=== PATIENT | female | born 1990 | race Caucasian/White ===

== ENCOUNTER 2018-06-14 13:20 | Emergency (ER) | payer OTHER, MEDICAID, SELFPAY ==
[2018-06-14 13:56] VITALS: BP 121/68; PULSE 80; RESP 18; TEMP 36.7; O2SAT 100
--- NOTE | 2018-06-14 14:03 | ED.HA ---
HPI - Headache General Chief Complaint: Headache Stated Complaint: bad headaches for a month Time Seen by Provider: 06/14/18 13:31 Source: patient and family Mode of arrival: ambulatory Limitations: no limitations History of Present Illness HPI Narrative: 28-year-old female presents to the emergency department today with a chief complaint headaches for the past month. She denies any focal neurologic findings such as blurred vision, trouble with speech or numbness and tingling of extremities. She denies any [id number] therapies such as Tylenol or Motrin because her doctors told her not to mix any [id number] medications with her current prescriptions. About 1 month ago she was started on a new antipsychotic and has been taking lithium since February. At this point she has had no blood tests or levels checked. She denies any fever or chills nor neck pain MD Complaint: headache Onset (ago): day(s) Onset description: gradual Location: diffuse Severity: moderate Quality: aching Exacerbating factors: none Associated symptoms: none Related Data Home Medications Medication Instructions Recorded Confirmed buspirone 2 tab PO QPM 06/14/18 06/14/18 escitalopram oxalate 20 mg PO QPM 06/14/18 06/14/18 hydroxyzine pamoate 25 mg PO TID PRN 06/14/18 06/14/18 iloperidone [Fanapt] 2 mg PO QPM 06/14/18 06/14/18 lithium carbonate 1 cap PO BID 06/14/18 06/14/18 trazodone 50 - 100 mg PO BEDTIME PRN 06/14/18 06/14/18 Review of Systems Review of Systems All systems reviewed & are unremarkable except as noted in HPI and below Constitutional Denies chills, Denies fever(s), Reports headache(s), Denies lethargy and Denies weakness Eyes Denies change in vision, Denies eye discharge, Denies irritation and Denies loss of vision ENT Ears, Nose, Mouth, and Throat: Denies change in voice, Reports headache(s), Denies neck pain and Denies sore throat Cardiovascular Denies chest pain, Denies irregular heart rhythm, Denies lightheadedness, Denies palpitations, Denies dyspnea, Denies dyspnea on exertion and Denies orthopnea Respiratory Denies cough, Denies dyspnea, Denies dyspnea on exertion and Denies wheezing Gastrointestinal Gastrointestinal: Denies abdominal pain, Denies change in bowel habits, Denies diarrhea, Denies nausea and Denies vomiting Genitourinary Denies hematuria, Denies flank pain, Denies urinary incontinence and Denies urinary urgency Musculoskeletal Denies neck pain Integumentary/Breasts Denies pruritus, Denies erythema, Denies rash and Denies wounds Neurologic Denies confusion, Reports headache(s), Denies loss of vision and Denies weakness Psychiatric Denies anxiety, Denies confusion, Denies depression, Denies homicidal ideation and Denies suicidal ideation Endocrine Denies palpitations Hematologic/Lymphatic Denies easy bruising Allergic/Immunologic Denies wheezing Exam Initial Vital Signs Initial Vital Signs: Vital Signs Temperature 98.1 F 06/14/18 13:56 Pulse Rate 80 06/14/18 13:56 Respiratory Rate 18 06/14/18 13:56 Blood Pressure 121/68 H 06/14/18 13:56 Pulse Oximetry 100 06/14/18 13:56 Const General: cooperative and well developed Nutritional Appearance: well nourished Orientation: alert, awake, oriented x3 and not confused [facility] Head: normocephalic and atraumatic Ears: external ears normal and TM's normal bilaterally Nose: external nose normal and No nasal discharge Face and sinus: sinuses nontender, face symmetric, no sinus tenderness and No dry mucous membranes Mouth: oral mucosae normal and moist mucous membranes Teeth and gingiva: dentition normal Throat: tonsils normal and uvula midline Eyes General: appearance normal, both eyes and all related structures Eyelids: eyelids normal Conjunctivae: conjunctivae normal Sclera: sclerae normal Pupils: PERRL EOM: EOM intact bilaterally Neck Neck: normal visual inspection, trachea midline, No lymphadenopathy, No midline deformity and No JVD Lymphatic: No lymphedema Chest Chest: normal inspection of the chest Resp Effort & Inspection: normal respiratory effort, able to speak in complete sentences, no respiratory distress and no use of accessory muscles Auscultation: clear to auscultation bilaterally, no rales, no rhonchi and no wheezes Cardio Rate: regular rate Rhythm: regular rhythm Heart Sounds: no click, no gallops, no murmurs and no rubs Pulses: normal peripheral pulses GI Inspection: non-distended Palpation: soft, no hepatosplenomegaly, No guarding, No pulsatile mass and No tender Auscultation: normal bowel sounds Back/Spine/Pelvis Back: No CVA tenderness Cervical Spine: cervical ROM normal and No pain with cervical ROM Thoracic/Lumbar Spine: thoracic and lumbar spine normal to inspection Skin General: no rashes or lesions noted, No jaundice and No petechiae Neuro General: alert, oriented x3, gait normal and no focal motor deficits Speech: speech normal Extrem General: full ROM, no clubbing, cyanosis or edema, no pedal edema and no calf tenderness Psych Appearance: well kempt Mental Status: mental status grossly normal Attitude: cooperative Thought Content: normal and suicidality Judgment: judgment good Course Orders Ordered: ED Orders 06/14/18 14:30 Basic Metabolic Panel Stat Complete Blood Count AUTO DIFF Stat [place] Stat Discontinued Medications Acetaminophen (Tylenol) 975 mg PO NOW ONE Stop: 06/14/18 16:17 Last Admin: 06/14/18 16:17 Dose: 975 mg Sodium Chloride (Normal Saline 0.9%) 1,000 mls @ 1,000 mls/hr IV BOLUS ONE Stop: 06/14/18 15:24 Last Infusion: 06/14/18 16:15 Dose: 0 mls/hr Admin: 06/14/18 15:04 Dose: 1,000 mls/hr Ketorolac Tromethamine (Toradol) 15 mg IV NOW ONE Stop: 06/14/18 14:26 Last Admin: 06/14/18 15:04 Dose: 15 mg Prochlorperazine (Compazine) 10 mg IV NOW ONE Stop: 06/14/18 14:26 Last Admin: 06/14/18 15:04 Dose: 10 mg Vital Signs - 8 hr 06/14/18 13:56 06/14/18 14:30 06/14/18 15:56 Temperature 98.1 F 98.1 F Pulse Rate 80 80 81 Respiratory Rate 18 18 16 Blood Pressure 134/64 H Blood Pressure [Left Arm] 121/68 H 126/82 H Pulse Oximetry 100 100 100 06/14/18 16:51 Temperature 98.4 F Pulse Rate 74 Respiratory Rate 16 Blood Pressure 134/74 H Blood Pressure [Left Arm] Pulse Oximetry 98 MDM - Headache Lab Data Result diagrams: 06/14/18 14:30 06/14/18 14:30 Lab Results 06/14/18 06/14/18 06/14/18 Range/Units 14:30 14:30 14:30 WBC 7.3 (4.5-11.0) X10^3/uL RBC 4.78 (4.0-5.2) X10^6/uL Hgb 13.4 (12.0-16.0) g/dL Hct 39.9 (36-46) % MCV 83.5 (80-100) fL MCH 28.0 (26-34) PG MCHC 33.6 (30-36) % RDW 14.1 (11.6-14.8) % Plt Count 240 (150-400) X10^3/uL Neut % (Auto) 61.4 (50-75) % Lymph % (Auto) 29.2 (25-40) % [place] % (Auto) 6.9 (3-14) % Eos % (Auto) 1.7 L (2-4) % Baso % (Auto) 0.8 (0-2) % Neut # (Auto) 4500 (5992-6201) /uL Sodium 142 (137-145) mmol/L Potassium 4.0 (3.4-5.1) mmol/L Chloride 106 (98-107) mmol/L Carbon Dioxide 27 (22-32) mmol/L BUN 14 (7-17) mg/dL Creatinine 0.90 (0.52-1.04) mg/dL Estimated GFR > 60.0 (>60) mL/min BUN/Creatinine Ratio 15.6 (6-22) Glucose 93 (70-100) mg/dL Calcium 9.3 (8.4-10.2) mg/dL [place] < 0.2 L (0.6-1.2) mmol/L Discharge Plan Departure Patient Disposition: Home, Self-Care Clinical Impression: Headache Discharge Date/Time: 06/14/18 16:51 Interventions: ED Discharge Assessment Last Done: 06/14/18 16:51 Instructions: DI for Headache Activity Restrictions/Additional Instructions: *You have been diagnosed with [headache and subtherapeutic lithium level ] *What to do: *Take medications as directed. If he no longer wanted take the medicines here on his very important that you stop them only under the direct supervision of the prescribing provider *Follow up with your primary care provider in 2-3 days, call for an appointment. Let them know you were seen in the Emergency Department and that we ask that you be seen in follow up *Return to ER if you should have any new, worsening or concerning symptoms, such as [worsening pain, persistent vomiting, other symptoms that are bothersome ] Prescriptions: No Action trazodone 50 mg tablet 50 - 100 mg PO BEDTIME PRN (Reason: Sleep) RF: 0 lithium carbonate 150 mg capsule 1 cap PO BID RF: 0 buspirone 15 mg tablet 2 tab PO QPM RF: 0 escitalopram oxalate 20 mg tablet 20 mg PO QPM RF: 0 iloperidone [Fanapt] 2 mg tablet 2 mg PO QPM RF: 0 hydroxyzine pamoate 25 mg capsule 25 mg PO TID PRN (Reason: DIRECTED) RF: 0
[2018-06-14 14:30] VITALS: BP 134/64; PULSE 80; RESP 18; TEMP 36.7; O2SAT 100
[2018-06-14 14:44] LABS: Add Manual Diff / Slide Review NO; Basophils Percent Auto 0.8 % (0-2); Eosinophils Percent Auto 1.7 % (2-4); Hematocrit 39.9 % (36-46); Hemoglobin 13.4 g/dL (12.0-16.0); Lymphocytes Percent Auto 29.2 % (25-40); Mean Corpuscular HGB Conc 33.6 % (30-36); Mean Corpuscular Volume 83.5 fL (80-100); Monocytes Percent Auto 6.9 % (3-14); Neutrophils Absolute Auto 4500 /uL (3000-5900); Neutrophils Percent Auto 61.4 % (50-75); Platelet Count 240 X10^3/uL (150-400); Red Blood Cell Count 4.78 X10^6/uL (4.0-5.2); Red Cell Distribution Width 14.1 % (11.6-14.8); White Blood Cell Count 7.3 X10^3/uL (4.5-11.0)
[2018-06-14 14:54] LABS: BUN Creatinine Ratio 15.6 (6-22); Blood Urea Nitrogen 14 mg/dL (7-17); Calcium 9.3 mg/dL (8.4-10.2); Carbon Dioxide 27 mmol/L (22-32); Chloride 106 mmol/L (98-107); Estimated Glomerular Filt Rate > 60.0 mL/min (>60); Glucose 93 mg/dL (70-100); HEMOLYSIS 15 (0-50); Sodium 142 mmol/L (137-145)
[2018-06-14 15:01] LABS: Lithium < 0.2 mmol/L (0.6-1.2)
[2018-06-14] MEDS: SODIUM CHLORIDE 0.9% 1,000 ML 1000 ML IV (15:04)
[2018-06-14] MEDS: KETOROLAC 15 MG/ML VIAL IV (15:04)
[2018-06-14] MEDS: PROCHLORPERAZINE 10 MG/2 ML VIAL IV (15:04)
[2018-06-14 15:56] VITALS: BP 126/82; PULSE 81; RESP 16; O2SAT 100
[2018-06-14] MEDS: ACETAMINOPHEN 325 MG TABLET 975 MG PO (16:17)
[2018-06-14 16:51] VITALS: BP 134/74; PULSE 74; RESP 16; TEMP 36.9; O2SAT 98
== END 2018-06-14 16:51 | disposition home or self-care (01) ==
PROVIDERS: Emergency Provider Emergency Medicine
DX: R51 Headache (principal)
CPT/HCPCS: 36591; 80048; 80178; 85025; 96361; 96374; 96375; 99283; 99284; J0780; J1885

== ENCOUNTER 2019-02-02 11:04 | Emergency (ER) | payer OTHER, MEDICAID, SELFPAY ==
[2019-02-02 11:28] VITALS: BP 138/87; PULSE 92; RESP 16; TEMP 37.1; O2SAT 100; BMI 44.3
--- NOTE | 2019-02-02 11:50 | DI.US.S_ITS ---
PROCEDURE: US OB <= 14 WEEKS FETUS INDICATIONS: EARLY , CRAMPING, QUANT PENDING OUTSIDE/PRIOR DATING DATA: Last menstrual period (LMP): 12/20/18. LMP-based estimated date of delivery (KASEY): 09/26/19. First dating scan (date and location): 02/02/19. Estimated date of delivery (KASEY) from first dating scan: 09/30/19. TECHNIQUE: Real-time scanning was performed of the fetus and maternal pelvic organs, with image documentation. Endovaginal scanning was also performed to better visualize the fetus and maternal ovaries. COMPARISON: None. FINDINGS: Embryo: Anechoic focus noted in the uterus. Yolk sac is identified. No pole identified. Gestational sac measures 1.0 cm corresponding to ultrasound estimated gestational age of 5 weeks 5 days. No heart motion identified on the current study. Measurement variability in dating: +/- 4 weeks by LMP, +/- 7 days by mean sac diameter (use before 6 weeks gestation if crown-rump length not able to be measured), +/- 5 days by crown-rump length (up to 8 weeks 6 days gestation), +/- 7 days by crown-rump length (up to 13 weeks 6 days gestation). Maternal organs: 2.0 cm thickwalled cysts noted in the right adnexa which likely represents corpus luteal cyst. Limited images through the kidneys demonstrate no hydronephrosis. IMPRESSION: 1. Early intrauterine with ultrasound estimated age of 5 weeks 5 days corresponding to an ultrasound KASEY of 09/30/2019. 2. Probable right corpus luteal cyst. Dictated by: Omayra De Jesus MD, PhD on 02/02/2019 at 12:42 Approved by: Omayra De Jesus MD, PhD on 02/02/2019 at 12:46
--- NOTE | 2019-02-02 12:15 | ED_ITS ---
HPI - General Adult General Chief complaint: OB/Uterine Contractions Stated complaint: CRAMPING,EARLY PREGANCY Time Seen by Provider: 02/02/19 11:51 Source: patient Mode of arrival: ambulatory Limitations: no limitations History of Present Illness HPI narrative: 28-year-old female who back in November took the morning after pill on December 11. She did not take a test at home before this. She states that she had light bleeding afterwards. This was after she had unprotected intercourse. She has had intercourse since then. She comes in today with left-sided of abdominal cramping. No vomiting. No vaginal bleeding. No urinary symptoms. Related Data Home Medications Medication Instructions Recorded Confirmed buspirone 2 tab PO QPM 06/14/18 06/14/18 escitalopram oxalate 20 mg PO QPM 06/14/18 02/02/19 hydroxyzine pamoate 25 mg PO TID PRN 06/14/18 06/14/18 iloperidone [Fanapt] 2 mg PO QPM 06/14/18 06/14/18 lithium carbonate 1 cap PO BID 06/14/18 06/14/18 trazodone 50 - 100 mg PO BEDTIME PRN 06/14/18 06/14/18 Allergies Allergy/AdvReac Type Severity Reaction Status Date / Time No Known Drug Allergies Allergy Verified 02/02/19 11:28 Review of Systems Constitutional Denies fever(s) Cardiovascular Denies chest pain and Denies dyspnea Respiratory Denies dyspnea Gastrointestinal Gastrointestinal: Denies change in stool character, Reports cramping, Denies diarrhea, Denies nausea and Denies vomiting Genitourinary Denies dysuria and Denies vaginal discharge Musculoskeletal Denies myalgias and Denies arthralgias Integumentary/Breasts Denies rash Neurologic Denies behavioral changes Psychiatric Denies behavioral changes Hematologic/Lymphatic Denies easy bleeding and Denies easy bruising Allergic/Immunologic Denies urticaria [facility] Medical History Healthy adult (Acute) Social History marital status: lives independently: Yes Social History marital status: lives independently: Yes Exam Initial Vital Signs Initial Vital Signs: Vital Signs Temperature 98.7 F 02/02/19 11:28 Pulse Rate 92 H 02/02/19 11:28 Respiratory Rate 16 02/02/19 11:28 Blood Pressure 138/87 02/02/19 11:28 Pulse Oximetry 100 02/02/19 11:28 Const General: cooperative, healthy appearing, comfortable, well developed, well groomed and No acute distress Orientation: alert, awake and oriented x3 Resp Effort & Inspection: normal respiratory effort Cardio Rate: regular rate Skin Lesions: no lesions Rashes: no rashes Neuro General: alert, awake and oriented x3 Psych Appearance: grossly normal and well kempt Course Orders Ordered: ED Orders 02/02/19 11:50 US OB <= 14 weeks fetus Stat 02/02/19 12:34 ABO RH Type Stat HCG Quantitative Stat Vital Signs - 8 hr 02/02/19 11:28 Temperature 98.7 F Pulse Rate 92 H Respiratory Rate 16 Blood Pressure 138/87 Pulse Oximetry 100 Medical Decision Making Lab Data Lab results reviewed: Yes I reviewed the patient's lab results. Lab Results 02/02/19 02/02/19 Range/Units 12:34 12:34 HCG, Quant 6709.5 mIU/mL Blood Type A Positive Imaging Data US - abdomen: Radiologist's impression: Patient: [facility]#: [id number] : 1990Acct:[id number] Age/Sex: 28 / FDate of Service: 02/02/19 Loc: Accession Number: [id number] Procedure: US OB <= 14 weeks fetus Ordering Provider: Jose Luis Lewis D.O. PROCEDURE: US OB <= 14 WEEKS FETUS INDICATIONS: EARLY , CRAMPING, QUANT PENDING OUTSIDE/PRIOR DATING DATA: Last menstrual period (LMP): 12/20/18. LMP-based estimated date of delivery (KASEY): 09/26/19. First dating scan (date and location): 02/02/19. Estimated date of delivery (KASEY) from first dating scan: 09/30/19. TECHNIQUE: Real-time scanning was performed of the fetus and maternal pelvic organs, with image documentation. Endovaginal scanning was also performed to better visualize the fetus and maternal ovaries. COMPARISON: None. FINDINGS: Embryo: Anechoic focus noted in the uterus. Yolk sac is identified. No pole identified. Gestational sac measures 1.0 cm corresponding to ultrasound estimated gestational age of 5 weeks 5 days. No heart motion identified on the current study. Measurement variability in dating: +/- 4 weeks by LMP, +/- 7 days by mean sac diameter (use before 6 weeks gestation if crown-rump length not able to be measured), +/- 5 days by crown-rump length (up to 8 weeks 6 days gestation), +/- 7 days by crown-rump length (up to 13 weeks 6 days gestation). Maternal organs: 2.0 cm thickwalled cysts noted in the right adnexa which likely represents corpus luteal cyst. Limited images through the kidneys demonstrate no hydronephrosis. IMPRESSION: 1. Early intrauterine with ultrasound estimated age of 5 weeks 5 days corresponding to an ultrasound KASEY of 09/30/2019. 2. Probable right corpus luteal cyst. Dictated by: Omayra De Jesus MD, PhD on 02/02/2019 at 12:42 Approved by: Omayra De Jesus MD, PhD on 02/02/2019 at 12:46 MDM Narrative Medical decision making narrative: Patient without any vaginal bleeding. Ultrasound does show an IUP with a gestational sac and yolk sac however no pole and no cardiac activity. This does correspond to the level of her HCG today. Consider that this is potentially retained products from the morning after pill she took in November versus a new since then. I discussed the case with Dr. Nassar who stated that the patient needed a repeat ultrasound in 1 week. Patient was given follow-up instructions. Was given return precautions. She was given the number for the [facility] to establish care. Patient and expressed understanding of plan. Discharge Plan Departure Patient Disposition: Home Clinical Impression: Qualifiers: Weeks of gestation: less than 8 weeks Qualified Code(s): Z3A.01 - Less than 8 weeks gestation of Instructions: DI for Abdominal Pain -- Early Activity Restrictions/Additional Instructions: I recommend you start taking vitamin. You do need a follow-up ultrasou nd in 1 week. You can call the [facility] [place] at [phone]. I would also recommend you contact your insurance company. Return emergency department at any time for new or worsening symptoms. Prescriptions: No Action trazodone 50 mg tablet 50 - 100 mg PO BEDTIME PRN (Reason: Sleep) RF: 0 lithium carbonate 150 mg capsule 1 cap PO BID RF: 0 buspirone 15 mg tablet 2 tab PO QPM RF: 0 escitalopram oxalate 20 mg tablet 20 mg PO QPM RF: 0 iloperidone [Fanapt] 2 mg tablet 2 mg PO QPM RF: 0 hydroxyzine pamoate 25 mg capsule 25 mg PO TID PRN (Reason: DIRECTED) RF: 0
--- NOTE | 2019-02-02 12:59 | PC.NURSE ---
pt reports, left abdominal cramping onset yesterday, worsen today, 5/10 intermittent discomfort. denies fever, pt with nausea no vomiting. chills for 2 weeks. pt took plan 2 ,on december 11 , had unprotected sex during her ovulation. pt had home urine test x3 , positive. pt also reports, since taking plan b, noted lower bilateral legs with edema, also pt states, she started to work and has been on her feet alot. awaiting for lab result.
[2019-02-02 13:23] LABS: HCG Quantitative /Beta subunit 6709.5 mIU/mL
[2019-02-02 14:11] VITALS: BP 144/72; PULSE 83; RESP 16; O2SAT 100
== END 2019-02-02 14:12 | disposition home or self-care (01) ==
PROVIDERS: Emergency Provider Emergency Medicine
DX: Z34.81 Encounter for supervision of other normal pregnancy, first trimester (principal); Z3A.01 Less than 8 weeks gestation of pregnancy
CPT/HCPCS: 36415; 76801; 76817; 84702; 86900; 86901; 99282; 99284

== ENCOUNTER 2019-02-08 15:11 | Emergency (ER) | payer OTHER, MEDICAID, SELFPAY ==
[2019-02-08 15:15] VITALS: BP 116/84; PULSE 105; RESP 20; TEMP 36.6; O2SAT 99
[2019-02-08] MEDS: SODIUM CHLORIDE 0.9% 1,000 ML 1000 ML IV (16:13)
[2019-02-08] MEDS: ONDANSETRON 4 MG/2 ML INJ IV ×2 (16:14→18:41)
[2019-02-08 16:17] VITALS: BP 141/63; PULSE 84; RESP 17; TEMP 37; O2SAT 100
[2019-02-08 16:17] LABS: Add Manual Diff / Slide Review NO; Basophils Absolute Auto 0 /uL (0-100); Basophils Percent Auto 0.4 % (0-2); Eosinophils Absolute Auto 0 /uL (0-450); Eosinophils Percent Auto 0.2 % (2-4); Hematocrit 44.9 % (36-46); Hemoglobin 14.8 g/dL (12.0-16.0); Lymphocytes Absolute Auto 1100 /uL (1100-4500); Mean Corpuscular Hemoglobin 28.4 PG (26-34); Monocytes Absolute Auto 500 /uL (0-900); Monocytes Percent Auto 4.9 % (3-14); Neutrophils Absolute Auto 9500 /uL (1500-7000); Neutrophils Percent Auto 84.5 % (50-75); Platelet Count 264 X10^3/uL (150-400); Red Blood Cell Count 5.22 X10^6/uL (4.0-5.2); Red Cell Distribution Width 13.3 % (11.6-14.8); White Blood Cell Count 11.2 X10^3/uL (4.5-11.0)
[2019-02-08 16:19] LABS: Influenza A and B by PCR Rapid Negative (Negative)
[2019-02-08 16:26] LABS: Alanine Aminotransferase 32 IU/L (9-52); Albumin 4.7 g/dL (3.5-5.0); Albumin Globulin Ratio 1.3 (1.0-2.8); Alkaline Phosphatase 76 U/L (38-126); Amylase 47 U/L (30-110); Aspartate Aminotransferase 27 IU/L (14-36); BUN Creatinine Ratio 15.7 (6-22); Bilirubin Total 0.6 mg/dL (0.2-1.3); Blood Urea Nitrogen 11 mg/dL (7-17); Calcium 9.3 mg/dL (8.4-10.2); Carbon Dioxide 24 mmol/L (22-32); Chloride 101 mmol/L (98-107); Estimated Glomerular Filt Rate > 60.0 mL/min (>60); Globulin 3.5 g/dL (1.7-4.1); Glucose 99 mg/dL (70-100); HEMOLYSIS < 15 (0-50); Lipase 45 U/L (23-300); Potassium 4.3 mmol/L (3.4-5.1); Sodium 137 mmol/L (137-145); Total Protein 8.2 g/dL (6.3-8.2)
[2019-02-08 17:07] LABS: HCG Quantitative /Beta subunit 32065 mIU/mL
[2019-02-08 17:30] VITALS: BP 129/65
--- NOTE | 2019-02-08 17:33 | ED.NAVMDI ---
HPI - Nausea/Vomiting/Diarrhea <MOISES Baca - Last Filed: 02/08/19 22:32> General Chief complaint: Nausea/Vomiting/Diarrhea Stated complaint: /NAUSEA/VOMITING/DIARRHEA Time Seen by Provider: 02/08/19 15:50 Source: patient Mode of arrival: ambulatory Limitations: no limitations History of Present Illness HPI Narrative: The patient is a , nonsmoker 28-year-old female with a chief complaint of nausea vomiting and diarrhea for 2 days. She states she was diagnosed as here last week and has not followed up with anybody since. She complains of Low-grade possible fevers and chills. she denies any abdominal pain, but complains of slight cramping in her left lower quadrant. She states she has not followed up with anybody about her at this point time as she is concerned that she has the flu. She denies any vaginal bleeding or vaginal discharge. She denies any dysuria urgency or frequency. The patient states she has not taking lithium since she found out she was . Related Data Home Medications Medication Instructions Recorded Confirmed buspirone 2 tab PO QPM 06/14/18 06/14/18 escitalopram oxalate 20 mg PO QPM 06/14/18 02/08/19 hydroxyzine pamoate 25 mg PO TID PRN 06/14/18 06/14/18 iloperidone [Fanapt] 2 mg PO QPM 06/14/18 06/14/18 lithium carbonate 1 cap PO BID 06/14/18 06/14/18 trazodone 50 - 100 mg PO BEDTIME PRN 06/14/18 06/14/18 Previous Rx's Medication Instructions Recorded ondansetron 4 mg PO TID-QID PRN #20 tab 02/08/19 Allergies Allergy/AdvReac Type Severity Reaction Status Date / Time No Known Drug Allergies Allergy Verified 02/02/19 11:28 Review of Systems <MOISES Baca - Last Filed: 02/08/19 22:32> Review of Systems GENERAL: See HPI HEENT: Denies sinus pain, ear pain, sore throat, difficulty swallowing, dizziness. RESPIRATORY: Denies dyspnea, cough, wheezing, hemoptysis, sputum. CARDIOVASCULAR: Denies chest pain, palpitations, orthopnea, edema, GASTROINTESTINAL: see HPI : Denies dysuria, frequency, incontinence, hematuria, urinary retention. MUSCULOSKELETAL: denies weakness, joint pain, or bony pain SKIN: Denies rash, skin lesions, or other NEUROLOGIC: Denies weakness, headache, numbness, change in speech, confusion, seizures, incoordination. PSYCHIATRIC: No concerning psychosocial issues. 12 point review of systems is negative except for those stated above PFSH <MOISES Baca - Last Filed: 02/08/19 22:32> Medical History Healthy adult (Acute) Social History marital status: lives independently: Yes Smoking Status: Never smoker Social History marital status: lives independently: Yes Smoking Status: Never smoker Exam <MOISES Baca - Last Filed: 02/08/19 22:32> Narrative Exam Narrative: GENERAL: This is a well-nourished, well-developed patient, lying on stretcher HEAD: Atraumatic. Normocephalic. No temporal or scalp tenderness. EYES: Pupils equal round and reactive. Extraocular motions intact. No scleral icterus. No injection or drainage. ENT: Nose without bleeding, purulent drainage or septal hematoma. Throat without erythema, tonsillar hypertrophy or exudate. Uvula midline. Airway patent. NECK: Trachea midline. No JVD or lymphadenopathy. Supple, nontender, no meningeal signs. CARDIOVASCULAR: Regular rate and rhythm without murmurs, gallops, or rubs. RESPIRATORY: Clear to auscultation. Breath sounds equal bilaterally. No wheezes, rales, or rhonchi. GASTROINTESTINAL: Abdomen obese, diffusely tender, nondistended. No hepato-splenomegaly, or palpable masses. No guarding. active bowel sounds all 4 quadrants EXTREMITIES: No clubbing, cyanosis, or edema. No joint tenderness, effusion, or edema noted. BACK: Nontender without deformity or crepitance. No flank tenderness. NEURO: AOx3. SKIN: No rash or erythema. Initial Vital Signs Initial Vital Signs: Vital Signs Temperature 97.8 F 02/08/19 15:15 Pulse Rate 105 H 03/20/19 15:15 Respiratory Rate 20 02/08/19 15:15 Blood Pressure 116/84 02/08/19 15:15 Pulse Oximetry 99 02/08/19 15:15 <Toby Garcia DO - Last Filed: 02/17/19 00:27> Initial Vital Signs Initial Vital Signs: Vital Signs Temperature 97.8 F 02/08/19 15:15 Pulse Rate 105 H 02/08/19 15:15 Respiratory Rate 20 02/08/19 15:15 Blood Pressure 116/84 02/08/19 15:15 Pulse Oximetry 99 02/08/19 15:15 Course <ODALYS Baca-BC - Last Filed: 02/08/19 22:32> Orders Ordered: Discontinued Medications Sodium Chloride (Normal Saline 0.9%) 1,000 mls @ 1,000 mls/hr IV BOLUS ONE Stop: 02/08/19 17:02 Last Infusion: 02/08/19 17:47 Dose: 0 mls/hr Admin: 02/08/19 16:13 Dose: 1,000 mls/hr Ondansetron HCl (Zofran) 4 mg IV NOW ONE Stop: 02/08/19 16:04 Last Admin: 02/08/19 16:14 Dose: 4 mg Ondansetron HCl (Zofran) 4 mg IV NOW ONE Stop: 02/08/19 18:40 Last Admin: 02/08/19 18:41 Dose: 4 mg Vital Signs - 8 hr 02/08/19 15:15 02/08/19 16:17 02/08/19 17:30 Temperature 97.8 F 98.6 F Pulse Rate 105 H 84 Respiratory Rate 20 17 Blood Pressure 116/84 Blood Pressure [Right Arm] 141/63 H 129/65 Pulse Oximetry 99 100 02/08/19 19:07 Temperature Pulse Rate 93 H Respiratory Rate 15 Blood Pressure Blood Pressure [Right Arm] 113/46 L Pulse Oximetry 98 <Toby Garcia DO - Last Filed: 02/17/19 00:27> Orders Ordered: Discontinued Medications Sodium Chloride (Normal Saline 0.9%) 1,000 mls @ 1,000 mls/hr IV BOLUS ONE Stop: 02/08/19 17:02 Last Infusion: 02/08/19 17:47 Dose: 0 mls/hr Admin: 02/08/19 16:13 Dose: 1,000 mls/hr Ondansetron HCl (Zofran) 4 mg IV NOW ONE Stop: 02/08/19 16:04 Last Admin: 02/08/19 16:14 Dose: 4 mg Ondansetron HCl (Zofran) 4 mg IV NOW ONE Stop: 02/08/19 18:40 Last Admin: 02/08/19 18:41 Dose: 4 mg Vital Signs - 8 hr 02/08/19 15:15 02/08/19 16:17 02/08/19 17:30 Temperature 97.8 F 98.6 F Pulse Rate 105 H 84 Respiratory Rate 20 17 Blood Pressure 116/84 Blood Pressure [Right Arm] 141/63 H 129/65 Pulse Oximetry 99 100 02/08/19 19:07 Temperature Pulse Rate 93 H Respiratory Rate 15 Blood Pressure Blood Pressure [Right Arm] 113/46 L Pulse Oximetry 98 MDM - Nausea/Vomiting/Diarrhea <ODALYS Baca-BC - Last Filed: 02/08/19 22:32> Lab Data Result diagrams: 02/08/19 16:00 02/08/19 16:00 Lab Results 02/08/19 02/08/19 02/08/19 Range/Units 16:00 16:00 16:00 WBC 11.2 H (4.5-11.0) X10^3/uL RBC 5.22 H (4.0-5.2) X10^6/uL Hgb 14.8 (12.0-16.0) g/dL Hct 44.9 (36-46) % MCV 86.0 (80-100) fL MCH 28.4 (26-34) PG MCHC 33.0 (30-36) % RDW 13.3 (11.6-14.8) % Plt Count 264 (150-400) X10^3/uL Neut % (Auto) 84.5 H (50-75) % Lymph % (Auto) 10.0 L (25-40) % Canyon % (Auto) 4.9 (3-14) % Eos % (Auto) 0.2 L (2-4) % Baso % (Auto) 0.4 (0-2) % Neut # (Auto) 9500 H (2992-4206) /uL Lymph # (Auto) 1100 (7149-4959) /uL Canyon # (Auto) 500 (0-900) /uL Eos # (Auto) 0 (0-450) /uL Baso # (Auto) 0 (0-100) /uL Sodium 137 (137-145) mmol/L Potassium 4.3 (3.4-5.1) mmol/L Chloride 101 (98-107) mmol/L Carbon Dioxide 24 (22-32) mmol/L BUN 11 (7-17) mg/dL Creatinine 0.70 (0.52-1.04) mg/dL Estimated GFR > 60.0 (>60) mL/min BUN/Creatinine Ratio 15.7 (6-22) Glucose 99 (70-100) mg/dL Calcium 9.3 (8.4-10.2) mg/dL Total Bilirubin 0.6 (0.2-1.3) mg/dL AST 27 (14-36) IU/L ALT 32 (9-52) IU/L Alkaline Phosphatase 76 (38-126) U/L Total Protein 8.2 (6.3-8.2) g/dL Albumin 4.7 (3.5-5.0) g/dL Globulin 3.5 (1.7-4.1) g/dL Albumin/Globulin Ratio 1.3 (1.0-2.8) Amylase (30-110) U/L Lipase (23-300) U/L HCG, Quant 46637 mIU/mL Influenza A & B (PCR) Negative (Negative) 02/08/19 Range/Units 16:00 WBC (4.5-11.0) X10^3/uL RBC (4.0-5.2) X10^6/uL Hgb (12.0-16.0) g/dL Hct (36-46) % MCV (80-100) fL MCH (26-34) PG MCHC (30-36) % RDW (11.6-14.8) % Plt Count (150-400) X10^3/uL Neut % (Auto) (50-75) % Lymph % (Auto) (25-40) % Canyon % (Auto) (3-14) % Eos % (Auto) (2-4) % Baso % (Auto) (0-2) % Neut # (Auto) (8522-6413) /uL Lymph # (Auto) (5986-6028) /uL Canyon # (Auto) (0-900) /uL Eos # (Auto) (0-450) /uL Baso # (Auto) (0-100) /uL Sodium (137-145) mmol/L Potassium (3.4-5.1) mmol/L Chloride (98-107) mmol/L Carbon Dioxide (22-32) mmol/L BUN (7-17) mg/dL Creatinine (0.52-1.04) mg/dL Estimated GFR (>60) mL/min BUN/Creatinine Ratio (6-22) Glucose (70-100) mg/dL Calcium (8.4-10.2) mg/dL Total Bilirubin (0.2-1.3) mg/dL AST (14-36) IU/L ALT (9-52) IU/L Alkaline Phosphatase (38-126) U/L Total Protein (6.3-8.2) g/dL Albumin (3.5-5.0) g/dL Globulin (1.7-4.1) g/dL Albumin/Globulin Ratio (1.0-2.8) Amylase 47 (30-110) U/L Lipase 45 (23-300) U/L HCG, Quant mIU/mL Influenza A & B (PCR) (Negative) Point of Care Testing Glucose POC 92 Urine Dip Bedside Urine Glucose Negative Bedside Urine Bilirubin - Negative Bedside Urine Ketone ++ 40 Urine Specific Byron 1.025 Bedside Urine Occult Blood - Negative Bedside Urine pH 6.0 Bedside Urine Protein +/- 15 Bedside Urine Urobilinogen - Negative Bedside Urine Nitrite - Negative Bedside Urine Leukocytes - Negative Esterase MDM Narrative Medical decision making narrative: the patient is a 28-year-old female who presents with chief complaint of nausea vomiting and diarrhea. She was unable to obtain stool cultures during her stay in the emergency department. She did not vomit throughout her stay in the emergency department. She is given IV fluids and Zofran. Her baseline labs are relatively within normal limits. Her beta HCG is trending upwards. Her urine does not show any signs of infection. She is afebrile and hemodynamically stable in the emergency department. The etiology of her nausea vomiting and diarrhea is unspecific at this point time she tested negative for the flu. I offered to obtain a repeat ultrasound, Especially given the recommendations from last visit. However the patient did not want to wait to obtain an ultrasound as it was her son's birthday. I emphasized that she needs to follow up with primary care tomorrow. Discussed return precautions of inability keep down fluids, acute concerns. Patient was able to tolerate a p.o. challenge before discharge. <Toby Garcia, DO - Last Filed: 02/17/19 00:27> Lab Data Lab Results 02/08/19 02/08/19 02/08/19 Range/Units 16:00 16:00 16:00 WBC 11.2 H (4.5-11.0) X10^3/uL RBC 5.22 H (4.0-5.2) X10^6/uL Hgb 14.8 (12.0-16.0) g/dL Hct 44.9 (36-46) % MCV 86.0 (80-100) fL MCH 28.4 (26-34) PG MCHC 33.0 (30-36) % RDW 13.3 (11.6-14.8) % Plt Count 264 (150-400) X10^3/uL Neut % (Auto) 84.5 H (50-75) % Lymph % (Auto) 10.0 L (25-40) % Canyon % (Auto) 4.9 (3-14) % Eos % (Auto) 0.2 L (2-4) % Baso % (Auto) 0.4 (0-2) % Neut # (Auto) 9500 H (2660-7666) /uL Lymph # (Auto) 1100 (0915-8586) /uL Canyon # (Auto) 500 (0-900) /uL Eos # (Auto) 0 (0-450) /uL Baso # (Auto) 0 (0-100) /uL Sodium 137 (137-145) mmol/L Potassium 4.3 (3.4-5.1) mmol/L Chloride 101 (98-107) mmol/L Carbon Dioxide 24 (22-32) mmol/L BUN 11 (7-17) mg/dL Creatinine 0.70 (0.52-1.04) mg/dL Estimated GFR > 60.0 (>60) mL/min BUN/Creatinine Ratio 15.7 (6-22) Glucose 99 (70-100) mg/dL Calcium 9.3 (8.4-10.2) mg/dL Total Bilirubin 0.6 (0.2-1.3) mg/dL AST 27 (14-36) IU/L ALT 32 (9-52) IU/L Alkaline Phosphatase 76 (38-126) U/L Total Protein 8.2 (6.3-8.2) g/dL Albumin 4.7 (3.5-5.0) g/dL Globulin 3.5 (1.7-4.1) g/dL Albumin/Globulin Ratio 1.3 (1.0-2.8) Amylase (30-110) U/L Lipase (23-300) U/L HCG, Quant 76289 mIU/mL Influenza A & B (PCR) Negative (Negative) 02/08/19 Range/Units 16:00 WBC (4.5-11.0) X10^3/uL RBC (4.0-5.2) X10^6/uL Hgb (12.0-16.0) g/dL Hct (36-46) % MCV (80-100) fL MCH (26-34) PG MCHC (30-36) % RDW (11.6-14.8) % Plt Count (150-400) X10^3/uL Neut % (Auto) (50-75) % Lymph % (Auto) (25-40) % Canyon % (Auto) (3-14) % Eos % (Auto) (2-4) % Baso % (Auto) (0-2) % Neut # (Auto) (2895-5534) /uL Lymph # (Auto) (7469-0183) /uL Canyon # (Auto) (0-900) /uL Eos # (Auto) (0-450) /uL Baso # (Auto) (0-100) /uL Sodium (137-145) mmol/L Potassium (3.4-5.1) mmol/L Chloride (98-107) mmol/L Carbon Dioxide (22-32) mmol/L BUN (7-17) mg/dL Creatinine (0.52-1.04) mg/dL Estimated GFR (>60) mL/min BUN/Creatinine Ratio (6-22) Glucose (70-100) mg/dL Calcium (8.4-10.2) mg/dL Total Bilirubin (0.2-1.3) mg/dL AST (14-36) IU/L ALT (9-52) IU/L Alkaline Phosphatase (38-126) U/L Total Protein (6.3-8.2) g/dL Albumin (3.5-5.0) g/dL Globulin (1.7-4.1) g/dL Albumin/Globulin Ratio (1.0-2.8) Amylase 47 (30-110) U/L Lipase 45 (23-300) U/L HCG, Quant mIU/mL Influenza A & B (PCR) (Negative) Point of Care Testing Glucose POC 92 Urine Dip Bedside Urine Glucose Negative Bedside Urine Bilirubin - Negative Bedside Urine Ketone ++ 40 Urine Specific Byron 1.025 Bedside Urine Occult Blood - Negative Bedside Urine pH 6.0 Bedside Urine Protein +/- 15 Bedside Urine Urobilinogen - Negative Bedside Urine Nitrite - Negative Bedside Urine Leukocytes - Negative Esterase Discharge Plan Departure Patient Disposition: Home Clinical Impression: Nausea & vomiting Qualifiers: Vomiting type: unspecified Vomiting Intractability: unspecified Qualified Code(s): R11.2 - Nausea with vomiting, unspecified Discharge Date/Time: 02/08/19 19:10 Interventions: ED Discharge Assessment Last Done: 02/08/19 19:16 Instructions: Nausea of (Alternative Therapy), DI for Nausea -- Adult, DI for Vomiting -- Adult Activity Restrictions/Additional [place]: [place] [address]. Your test for the flu is negative. Your urine shows no signs of infection. I am giving a prescription for antinausea medication.Please monitor for fever and inability keep down fluids. Please follow up with primary care provider soon as possible. Prescriptions: New ondansetron 4 mg tablet,disintegrating 4 mg PO TID-QID PRN (Reason: nausea and vomiting) Qty: 20 RF: 0 No Action trazodone 50 mg tablet 50 - 100 mg PO BEDTIME PRN (Reason: Sleep) RF: 0 lithium carbonate 150 mg capsule 1 cap PO BID RF: 0 buspirone 15 mg tablet 2 tab PO QPM RF: 0 escitalopram oxalate 20 mg tablet 20 mg PO QPM RF: 0 iloperidone [Fanapt] 2 mg tablet 2 mg PO QPM RF: 0 hydroxyzine pamoate 25 mg capsule 25 mg PO TID PRN (Reason: DIRECTED) RF: 0 <Toby Garcia, DO - Last Filed: 02/17/19 00:27> Cosign ED Attending Cosignature Attestation: I was immediately available in the department for consultation. Documentation has been reviewed. I agree with assessment and plan.
[2019-02-08 19:07] VITALS: BP 113/46; PULSE 93; RESP 15; O2SAT 98
--- NOTE | 2019-02-08 22:32 | ED_ITS ---
HPI - Nausea/Vomiting/Diarrhea <MOISES Baca - Last Filed: 02/08/19 22:32> General Chief complaint: Nausea/Vomiting/Diarrhea Stated complaint: /NAUSEA/VOMITING/DIARRHEA Time Seen by Provider: 02/08/19 15:50 Source: patient Mode of arrival: ambulatory Limitations: no limitations History of Present Illness HPI Narrative: The patient is a , nonsmoker 28-year-old female with a chief complaint of nausea vomiting and diarrhea for 2 days. She states she was diagnosed as here last week and has not followed up with anybody since. She complains of Low-grade possible fevers and chills. she denies any abdominal pain, but complains of slight cramping in her left lower quadrant. She states she has not followed up with anybody about her at this point time as she is concerned that she has the flu. She denies any vaginal bleeding or vaginal discharge. She denies any dysuria urgency or frequency. The patient states she has not taking lithium since she found out she was . Related Data Home Medications Medication Instructions Recorded Confirmed buspirone 2 tab PO QPM 06/14/18 06/14/18 escitalopram oxalate 20 mg PO QPM 06/14/18 02/08/19 hydroxyzine pamoate 25 mg PO TID PRN 06/14/18 06/14/18 iloperidone [Fanapt] 2 mg PO QPM 06/14/18 06/14/18 lithium carbonate 1 cap PO BID 06/14/18 06/14/18 trazodone 50 - 100 mg PO BEDTIME PRN 06/14/18 06/14/18 Previous Rx's Medication Instructions Recorded ondansetron 4 mg PO TID-QID PRN #20 tab 02/08/19 Allergies Allergy/AdvReac Type Severity Reaction Status Date / Time No Known Drug Allergies Allergy Verified 02/02/19 11:28 Review of Systems <MOISES Baca - Last Filed: 02/08/19 22:32> Review of Systems GENERAL: See HPI HEENT: Denies sinus pain, ear pain, sore throat, difficulty swallowing, dizziness. RESPIRATORY: Denies dyspnea, cough, wheezing, hemoptysis, sputum. CARDIOVASCULAR: Denies chest pain, palpitations, orthopnea, edema, GASTROINTESTINAL: see HPI : Denies dysuria, frequency, incontinence, hematuria, urinary retention. MUSCULOSKELETAL: denies weakness, joint pain, or bony pain SKIN: Denies rash, skin lesions, or other NEUROLOGIC: Denies weakness, headache, numbness, change in speech, confusion, seizures, incoordination. PSYCHIATRIC: No concerning psychosocial issues. 12 point review of systems is negative except for those stated above PFSH <MOISES Baca - Last Filed: 02/08/19 22:32> Medical History Healthy adult (Acute) Social History marital status: lives independently: Yes Smoking Status: Never smoker Social History marital status: lives independently: Yes Smoking Status: Never smoker Exam <MOISES Baca - Last Filed: 02/08/19 22:32> Narrative Exam Narrative: GENERAL: This is a well-nourished, well-developed patient, lying on stretcher HEAD: Atraumatic. Normocephalic. No temporal or scalp tenderness. EYES: Pupils equal round and reactive. Extraocular motions intact. No scleral icterus. No injection or drainage. ENT: Nose without bleeding, purulent drainage or septal hematoma. Throat without erythema, tonsillar hypertrophy or exudate. Uvula midline. Airway patent. NECK: Trachea midline. No JVD or lymphadenopathy. Supple, nontender, no meningeal signs. CARDIOVASCULAR: Regular rate and rhythm without murmurs, gallops, or rubs. RESPIRATORY: Clear to auscultation. Breath sounds equal bilaterally. No wheezes, rales, or rhonchi. GASTROINTESTINAL: Abdomen obese, diffusely tender, nondistended. No hepato- splenomegaly, or palpable masses. No guarding. active bowel sounds all 4 quadrants EXTREMITIES: No clubbing, cyanosis, or edema. No joint tenderness, effusion, or edema noted. BACK: Nontender without deformity or crepitance. No flank tenderness. NEURO: AOx3. SKIN: No rash or erythema. Initial Vital Signs Initial Vital Signs: Vital Signs Temperature 97.8 F 02/08/19 15:15 Pulse Rate 105 H 03/20/19 15:15 Respiratory Rate 20 02/08/19 15:15 Blood Pressure 116/84 02/08/19 15:15 Pulse Oximetry 99 02/08/19 15:15 <Toby Garcia DO - Last Filed: 02/17/19 00:27> Initial Vital Signs Initial Vital Signs: Vital Signs Temperature 97.8 F 02/08/19 15:15 Pulse Rate 105 H 02/08/19 15:15 Respiratory Rate 20 02/08/19 15:15 Blood Pressure 116/84 02/08/19 15:15 Pulse Oximetry 99 02/08/19 15:15 Course <ODALYS Baca-BC - Last Filed: 02/08/19 22:32> Orders Ordered: Discontinued Medications Sodium Chloride (Normal Saline 0.9%) 1,000 mls @ 1,000 mls/hr IV BOLUS ONE Stop: 02/08/19 17:02 Last Infusion: 02/08/19 17:47 Dose: 0 mls/hr Admin: 02/08/19 16:13 Dose: 1,000 mls/hr Ondansetron HCl (Zofran) 4 mg IV NOW ONE Stop: 02/08/19 16:04 Last Admin: 02/08/19 16:14 Dose: 4 mg Ondansetron HCl (Zofran) 4 mg IV NOW ONE Stop: 02/08/19 18:40 Last Admin: 02/08/19 18:41 Dose: 4 mg Vital Signs - 8 hr 02/08/19 15:15 02/08/19 16:17 02/08/19 17:30 Temperature 97.8 F 98.6 F Pulse Rate 105 H 84 Respiratory Rate 20 17 Blood Pressure 116/84 Blood Pressure [Right Arm] 141/63 H 129/65 Pulse Oximetry 99 100 02/08/19 19:07 Temperature Pulse Rate 93 H Respiratory Rate 15 Blood Pressure Blood Pressure [Right Arm] 113/46 L Pulse Oximetry 98 <Toby Garcia DO - Last Filed: 02/17/19 00:27> Orders Ordered: Discontinued Medications Sodium Chloride (Normal Saline 0.9%) 1,000 mls @ 1,000 mls/hr IV BOLUS ONE Stop: 02/08/19 17:02 Last Infusion: 02/08/19 17:47 Dose: 0 mls/hr Admin: 02/08/19 16:13 Dose: 1,000 mls/hr Ondansetron HCl (Zofran) 4 mg IV NOW ONE Stop: 02/08/19 16:04 Last Admin: 02/08/19 16:14 Dose: 4 mg Ondansetron HCl (Zofran) 4 mg IV NOW ONE Stop: 02/08/19 18:40 Last Admin: 02/08/19 18:41 Dose: 4 mg Vital Signs - 8 hr 02/08/19 15:15 02/08/19 16:17 02/08/19 17:30 Temperature 97.8 F 98.6 F Pulse Rate 105 H 84 Respiratory Rate 20 17 Blood Pressure 116/84 Blood Pressure [Right Arm] 141/63 H 129/65 Pulse Oximetry 99 100 02/08/19 19:07 Temperature Pulse Rate 93 H Respiratory Rate 15 Blood Pressure Blood Pressure [Right Arm] 113/46 L Pulse Oximetry 98 MDM - Nausea/Vomiting/Diarrhea <ODALYS Baca-BC - Last Filed: 02/08/19 22:32> Lab Data Result diagrams: 02/08/19 16:00 02/08/19 16:00 Lab Results 02/08/19 02/08/19 02/08/19 Range/Units 16:00 16:00 16:00 WBC 11.2 H (4.5-11.0) X10^3/uL RBC 5.22 H (4.0-5.2) X10^6/uL Hgb 14.8 (12.0-16.0) g/dL Hct 44.9 (36-46) % MCV 86.0 (80-100) fL MCH 28.4 (26-34) PG MCHC 33.0 (30-36) % RDW 13.3 (11.6-14.8) % Plt Count 264 (150-400) X10^3/uL Neut % (Auto) 84.5 H (50-75) % Lymph % (Auto) 10.0 L (25-40) % Archer % (Auto) 4.9 (3-14) % Eos % (Auto) 0.2 L (2-4) % Baso % (Auto) 0.4 (0-2) % Neut # (Auto) 9500 H (8742-1755) /uL Lymph # (Auto) 1100 (9456-5340) /uL Archer # (Auto) 500 (0-900) /uL Eos # (Auto) 0 (0-450) /uL Baso # (Auto) 0 (0-100) /uL Sodium 137 (137-145) mmol/L Potassium 4.3 (3.4-5.1) mmol/L Chloride 101 (98-107) mmol/L Carbon Dioxide 24 (22-32) mmol/L BUN 11 (7-17) mg/dL Creatinine 0.70 (0.52-1.04) mg/dL Estimated GFR > 60.0 (>60) mL/min BUN/Creatinine Ratio 15.7 (6-22) Glucose 99 (70-100) mg/dL Calcium 9.3 (8.4-10.2) mg/dL Total Bilirubin 0.6 (0.2-1.3) mg/dL AST 27 (14-36) IU/L ALT 32 (9-52) IU/L Alkaline Phosphatase 76 (38-126) U/L Total Protein 8.2 (6.3-8.2) g/dL Albumin 4.7 (3.5-5.0) g/dL Globulin 3.5 (1.7-4.1) g/dL Albumin/Globulin Ratio 1.3 (1.0-2.8) Amylase (30-110) U/L Lipase (23-300) U/L HCG, Quant 64165 mIU/mL Influenza A & B (PCR) Negative (Negative) 02/08/19 Range/Units 16:00 WBC (4.5-11.0) X10^3/uL RBC (4.0-5.2) X10^6/uL Hgb (12.0-16.0) g/dL Hct (36-46) % MCV (80-100) fL MCH (26-34) PG MCHC (30-36) % RDW (11.6-14.8) % Plt Count (150-400) X10^3/uL Neut % (Auto) (50-75) % Lymph % (Auto) (25-40) % Archer % (Auto) (3-14) % Eos % (Auto) (2-4) % Baso % (Auto) (0-2) % Neut # (Auto) (0545-2275) /uL Lymph # (Auto) (0511-8466) /uL Archer # (Auto) (0-900) /uL Eos # (Auto) (0-450) /uL Baso # (Auto) (0-100) /uL Sodium (137-145) mmol/L Potassium (3.4-5.1) mmol/L Chloride (98-107) mmol/L Carbon Dioxide (22-32) mmol/L BUN (7-17) mg/dL Creatinine (0.52-1.04) mg/dL Estimated GFR (>60) mL/min BUN/Creatinine Ratio (6-22) Glucose (70-100) mg/dL Calcium (8.4-10.2) mg/dL Total Bilirubin (0.2-1.3) mg/dL AST (14-36) IU/L ALT (9-52) IU/L Alkaline Phosphatase (38-126) U/L Total Protein (6.3-8.2) g/dL Albumin (3.5-5.0) g/dL Globulin (1.7-4.1) g/dL Albumin/Globulin Ratio (1.0-2.8) Amylase 47 (30-110) U/L Lipase 45 (23-300) U/L HCG, Quant mIU/mL Influenza A & B (PCR) (Negative) Point of Care Testing Glucose POC 92 Urine Dip Bedside Urine Glucose Negative Bedside Urine Bilirubin - Negative Bedside Urine Ketone ++ 40 Urine Specific Everett 1.025 Bedside Urine Occult Blood - Negative Bedside Urine pH 6.0 Bedside Urine Protein +/- 15 Bedside Urine Urobilinogen - Negative Bedside Urine Nitrite - Negative Bedside Urine Leukocytes - Negative Esterase MDM Narrative Medical decision making narrative: the patient is a 28-year-old female who presents with chief complaint of nausea vomiting and diarrhea. She was unable to obtain stool cultures during her stay in the emergency department. She did not vomit throughout her stay in the emergency department. She is given IV fluids and Zofran. Her baseline labs are relatively within normal limits. Her beta HCG is trending upwards. Her urine does not show any signs of infection. She is afebrile and hemodynamically stable in the emergency department. The etiology of her nausea vomiting and diarrhea is unspecific at this point time she tested negative for the flu. I offered to obtain a repeat ultrasound, Especially given the recommendations from last visit. However the patient did not want to wait to obtain an ultrasound as it was her son's birthday. I emphasized that she needs to follow up with primary care tomorrow. Discussed return precautions of inability keep down fluids, acute concerns. Patient was able to tolerate a p.o. challenge before discharge. <Toby Garcia, DO - Last Filed: 02/17/19 00:27> Lab Data Lab Results 02/08/19 02/08/19 02/08/19 Range/Units 16:00 16:00 16:00 WBC 11.2 H (4.5-11.0) X10^3/uL RBC 5.22 H (4.0-5.2) X10^6/uL Hgb 14.8 (12.0-16.0) g/dL Hct 44.9 (36-46) % MCV 86.0 (80-100) fL MCH 28.4 (26-34) PG MCHC 33.0 (30-36) % RDW 13.3 (11.6-14.8) % Plt Count 264 (150-400) X10^3/uL Neut % (Auto) 84.5 H (50-75) % Lymph % (Auto) 10.0 L (25-40) % Archer % (Auto) 4.9 (3-14) % Eos % (Auto) 0.2 L (2-4) % Baso % (Auto) 0.4 (0-2) % Neut # (Auto) 9500 H (6362-8092) /uL Lymph # (Auto) 1100 (0322-6583) /uL Archer # (Auto) 500 (0-900) /uL Eos # (Auto) 0 (0-450) /uL Baso # (Auto) 0 (0-100) /uL Sodium 137 (137-145) mmol/L Potassium 4.3 (3.4-5.1) mmol/L Chloride 101 (98-107) mmol/L Carbon Dioxide 24 (22-32) mmol/L BUN 11 (7-17) mg/dL Creatinine 0.70 (0.52-1.04) mg/dL Estimated GFR > 60.0 (>60) mL/min BUN/Creatinine Ratio 15.7 (6-22) Glucose 99 (70-100) mg/dL Calcium 9.3 (8.4-10.2) mg/dL Total Bilirubin 0.6 (0.2-1.3) mg/dL AST 27 (14-36) IU/L ALT 32 (9-52) IU/L Alkaline Phosphatase 76 (38-126) U/L Total Protein 8.2 (6.3-8.2) g/dL Albumin 4.7 (3.5-5.0) g/dL Globulin 3.5 (1.7-4.1) g/dL Albumin/Globulin Ratio 1.3 (1.0-2.8) Amylase (30-110) U/L Lipase (23-300) U/L HCG, Quant 70333 mIU/mL Influenza A & B (PCR) Negative (Negative) 02/08/19 Range/Units 16:00 WBC (4.5-11.0) X10^3/uL RBC (4.0-5.2) X10^6/uL Hgb (12.0-16.0) g/dL Hct (36-46) % MCV (80-100) fL MCH (26-34) PG MCHC (30-36) % RDW (11.6-14.8) % Plt Count (150-400) X10^3/uL Neut % (Auto) (50-75) % Lymph % (Auto) (25-40) % Archer % (Auto) (3-14) % Eos % (Auto) (2-4) % Baso % (Auto) (0-2) % Neut # (Auto) (1258-8670) /uL Lymph # (Auto) (4389-2797) /uL Archer # (Auto) (0-900) /uL Eos # (Auto) (0-450) /uL Baso # (Auto) (0-100) /uL Sodium (137-145) mmol/L Potassium (3.4-5.1) mmol/L Chloride (98-107) mmol/L Carbon Dioxide (22-32) mmol/L BUN (7-17) mg/dL Creatinine (0.52-1.04) mg/dL Estimated GFR (>60) mL/min BUN/Creatinine Ratio (6-22) Glucose (70-100) mg/dL Calcium (8.4-10.2) mg/dL Total Bilirubin (0.2-1.3) mg/dL AST (14-36) IU/L ALT (9-52) IU/L Alkaline Phosphatase (38-126) U/L Total Protein (6.3-8.2) g/dL Albumin (3.5-5.0) g/dL Globulin (1.7-4.1) g/dL Albumin/Globulin Ratio (1.0-2.8) Amylase 47 (30-110) U/L Lipase 45 (23-300) U/L HCG, Quant mIU/mL Influenza A & B (PCR) (Negative) Point of Care Testing Glucose POC 92 Urine Dip Bedside Urine Glucose Negative Bedside Urine Bilirubin - Negative Bedside Urine Ketone ++ 40 Urine Specific Everett 1.025 Bedside Urine Occult Blood - Negative Bedside Urine pH 6.0 Bedside Urine Protein +/- 15 Bedside Urine Urobilinogen - Negative Bedside Urine Nitrite - Negative Bedside Urine Leukocytes - Negative Esterase Discharge Plan Departure Patient Disposition: Home Clinical Impression: Nausea & vomiting Qualifiers: Vomiting type: unspecified Vomiting Intractability: unspecified Qualified Code(s): R11.2 - Nausea with vomiting, unspecified Discharge Date/Time: 02/08/19 19:10 Interventions: ED Discharge Assessment Last Done: 02/08/19 19:16 Instructions: Nausea of (Alternative Therapy), DI for Nausea -- Adult, DI for Vomiting -- Adult Activity Restrictions/Additional [place]: [place] [address]. Your test for the flu is negative. Your urine shows no signs of infection. I am giving a prescription for antinausea medication.Please monitor for fever and inability keep down fluids. Please follow up with primary care provider soon as possible. Prescriptions: New ondansetron 4 mg tablet,disintegrating 4 mg PO TID-QID PRN (Reason: nausea and vomiting) Qty: 20 RF: 0 No Action trazodone 50 mg tablet 50 - 100 mg PO BEDTIME PRN (Reason: Sleep) RF: 0 lithium carbonate 150 mg capsule 1 cap PO BID RF: 0 buspirone 15 mg tablet 2 tab PO QPM RF: 0 escitalopram oxalate 20 mg tablet 20 mg PO QPM RF: 0 iloperidone [Fanapt] 2 mg tablet 2 mg PO QPM RF: 0 hydroxyzine pamoate 25 mg capsule 25 mg PO TID PRN (Reason: DIRECTED) RF: 0 <Toby Garcia, DO - Last Filed: 02/17/19 00:27> Cosign ED Attending Cosignature Attestation: I was immediately available in the depa rtment for consultation. Documentation has been reviewed. I agree with assessment and plan.
== END 2019-02-08 19:10 | disposition home or self-care (01) ==
PROVIDERS: Emergency Provider Nurse Practitioner Family
DX: O21.9 Vomiting of pregnancy, unspecified (principal)
CPT/HCPCS: 36591; 80053; 81003; 82150; 82962; 83690; 84702; 85025; 87400; 96361; 96374; 96376; 99283; 99284; J2405

== ENCOUNTER → 2022-07-15 13:46 | Outpatient (CLI) | payer OTHER, MEDICAID, SELFPAY | PROVIDERS: Visit Provider Nurse Practitioner Family | DX: R30.0 Dysuria (principal) | CPT/HCPCS: 81002; 87077; 87086; 87186 ==

== ENCOUNTER → 2022-10-08 11:27 | Outpatient (CLI) | payer OTHER, MEDICAID, SELFPAY ==
[2022-10-08 12:34] LABS: Influenza A - CEPHEID Flu A NEGATIVE (NEGATIVE); Influenza B - CEPHEID Flu B NEGATIVE (NEGATIVE); Respiratory Syncytial Virus Negative (Negative)
[2022-10-08 12:46] LABS: COVID-19 CEPHEID 4-PLEX PCR Negative (Negative)
== END ==
PROVIDERS: Visit Provider Nurse Practitioner Family
DX: J02.9 Acute pharyngitis, unspecified (principal)
CPT/HCPCS: 0241U; 87880

== ENCOUNTER → 2022-11-08 15:17 | Outpatient (CLI) | payer OTHER, MEDICAID, SELFPAY | PROVIDERS: Visit Provider Nurse Practitioner Family | DX: J02.9 Acute pharyngitis, unspecified (principal) | CPT/HCPCS: 87880 ==

== ENCOUNTER → 2023-02-26 12:23 | Outpatient (CLI) | payer OTHER, MEDICAID, SELFPAY | PROVIDERS: Visit Provider Nurse Practitioner Family | DX: M54.50 Low back pain, unspecified (principal) | CPT/HCPCS: 81002; 87086; 87147 ==

== ENCOUNTER 2023-04-05 09:25 | Emergency (ER) | payer OTHER, MEDICAID, SELFPAY ==
--- NOTE | 2023-04-05 09:35 | ED_ITS ---
HPI - General Adult General Chief complaint: Upper Respiratory Symptoms Stated complaint: sent by [facility]; SOB Time Seen by Provider: 04/05/23 09:33 Source: patient Mode of arrival: Ambulatory Limitations: no limitations History of Present Illness HPI narrative: Patient is a 32-year-old female who was sent over from the walk-in clinic for evaluation of shortness of breath and wheezing. She states that she is no unde rlying lung issues however in the past when she is developed respiratory infection she is needed inhalers. She states that her symptoms really worsened over the past 12-14 hours. She is had an old inhaler at home which she was using without any improvement. Her son has had a viral illness like symptoms recently. Related Data Previous Rx's Medication Instructions Recorded prednisone 20 mg tablet 20 mg PO DAILY 7 days #7 tabs 04/05/23 Allergies Allergy/AdvReac Type Severity Reaction Status Date / Time No Known Drug Allergies Allergy Verified 04/05/23 09:41 Review of Systems Constitutional Constitutional: Reports system reviewed and no additional complaints, except as documented Cardiovascular Cardiovascular: Reports system reviewed and no additional complaints, except as documented Respiratory Respiratory: Reports system reviewed and no additional complaints, except as documented Integumentary/Breasts Skin/Breast: Reports system reviewed and no additional complaints, except as documented Neurologic Neurologic: Reports system reviewed and no additional complaints, except as documented Patient History Medical History (Updated 04/05/23 @ 10:11 by Jose Luis Lewis DO) Healthy adult Social History marital status: lives independently: Yes Smoking Status: Never smoker Smoking Status: Never smoker Exam Initial Vital Signs Initial Vital Signs: Vital Signs Temperature 98 F 04/05/23 09:36 Pulse Rate 104 H 04/05/23 09:36 Respiratory Rate 22 04/05/23 09:36 Blood Pressure 154/92 H 04/05/23 09:36 Pulse Oximetry 95 04/05/23 09:36 Oxygen Delivery Method Room Air 04/05/23 09:36 Const General: cooperative and healthy appearing HENMT Head: normal to inspection and normocephalic Resp Effort & Inspection: normal respiratory effort and not tachypneic Auscultation: wheezes Cardio Rate: regular rate Rhythm: regular rhythm Skin General: no rashes or lesions noted Extrem General: normal to inspection and capillary refill normal Course Orders Ordered: ED Orders 04/05/23 09:34 RT Consult Eval and Treat NOW Discontinued Medications Albuterol (Albuterol Hfa Prepack) 1 box MISC SEEINSTR ONE Stop: 04/05/23 09:35 Last Admin: 04/05/23 09:37 Dose: 1 box Documented By: MARJ Albuterol (Albuterol 2.5 Mg/3 Ml Neb (Adult)) 2.5 mg INH NOW ONE Stop: 04/05/23 09:36 Last Admin: 04/05/23 09:37 Dose: 2.5 mg Documented By: MARJ Vital Signs Vital signs: Vital Signs - 8 hr 04/05/23 09:36 04/05/23 09:38 Temperature 98 F Pulse Rate 104 H 82 Respiratory Rate 22 18 Blood Pressure 154/92 H Pulse Oximetry 95 93 Oxygen Delivery Method Room Air Room Air Oxygen Flow Rate 0 Fraction of Inspired Oxygen 21 Medical Decision Making MDM Narrative Medical decision making narrative: Patient is still somewhat wheezing however has had significant improvement after the nebulizer treatment and also the inhaler. No fevers. Low suspicion for pneumonia. Will send home with a prescription for albuterol and also the a spacer. Also put her on steroids. She was advised that she needed to make contact with the primary doctor as she may need follow-up and further pulmonary function testing. No indication for antibiotics. Discharge Plan Departure Patient Disposition: Home Clinical Impression: Wheezing Instructions: DI for Reactive Airway Disease-Adult Activity Restrictions/Additional Instructions: I do recommend that you use the steroids and also the albuterol as directed. Also use the steroids as directed. It is important that you may contact with a primary doctor as you may need further respiratory testing. Return to the emergency department for new or worsening symptoms. Prescriptions: New prednisone 20 mg tablet 20 mg PO DAILY 7 Days Qty: 7 0RF Referrals: Miscellaneous,Doctor[facility] [Primary Care Provider] - Stand Alone Forms: Patient Portal/API
[2023-04-05 09:36] VITALS: BP 154/92; PULSE 104; RESP 22; TEMP 36.6; O2SAT 95; BMI 38.4
[2023-04-05] MEDS: ALBUTEROL HFA PREPACK 1 BOX MISC (09:37)
[2023-04-05] MEDS: ALBUTEROL 2.5 MG/3 ML NEB (ADULT) INH (09:37)
[2023-04-05 09:38] VITALS: PULSE 82; RESP 18; O2SAT 93
== END 2023-04-05 10:15 | disposition home or self-care (01) ==
PROVIDERS: Emergency Provider Emergency Medicine
DX: R06.2 Wheezing (principal)
CPT/HCPCS: 94640; 99283; J7613

== ENCOUNTER 2023-04-08 11:27 | Emergency (ER) | payer OTHER, MEDICAID, SELFPAY ==
[2023-04-08] VITALS (8 sets, daily range): BP systolic 138–153; BP diastolic 71–97; PULSE 76–103; RESP 18; TEMP 37.6; O2SAT 91–99; BMI 38.4
--- NOTE | 2023-04-08 11:39 | DI.RAD.S_ITS ---
PROCEDURE: XR CHEST 1V INDICATIONS: Shortness of breath TECHNIQUE: One view of the chest was acquired. COMPARISON: None. FINDINGS: Surgical changes and devices: None. Lungs and pleura: Lungs are clear. No pleural effusions or pneumothorax. Mediastinum: Mediastinal contours appear normal. Heart size is normal. Bones and chest wall: No suspicious bony lesions. Overlying soft tissues appear unremarkable. IMPRESSION: No evidence acute pulmonary process. Dictated by: Pascual Orta M.D. on 04/08/2023 at 12:49 Approved by: Pascual Orta M.D. on 04/08/2023 at 12:49
[2023-04-08 11:54] LABS: Add Manual Diff / Slide Review NO; Basophils Absolute Auto 100 /uL (0-100); Eosinophils Absolute Auto 200 /uL (0-450); Eosinophils Percent Auto 2.3 % (2-4); Hematocrit 43.6 % (36-46); Hemoglobin 14.7 g/dL (12.0-16.0); Lymphocytes Absolute Auto 2900 /uL (1100-4500); Lymphocytes Percent Auto 40.7 % (25-40); Mean Corpuscular HGB Conc 33.8 % (30-36); Mean Corpuscular Hemoglobin 29.2 PG (26-34); Mean Corpuscular Volume 86.5 fL (80-100); Monocytes Absolute Auto 600 /uL (0-900); Monocytes Percent Auto 7.9 % (3-14); Neutrophils Absolute Auto 3500 /uL (1500-7000); Neutrophils Percent Auto 48.1 % (50-75); Platelet Count 262 X10^3/uL (150-400); Red Blood Cell Count 5.04 X10^6/uL (4.0-5.2); Red Cell Distribution Width 13.5 % (11.6-14.8); White Blood Cell Count 7.2 X10^3/uL (4.5-11.0)
[2023-04-08 12:01] LABS: Prothrombin Time 11.2 SECONDS (10.1-12.7)
[2023-04-08 12:06] LABS: Alanine Aminotransferase 22 IU/L (<35); Albumin 4.6 g/dL (3.5-5.0); Albumin Globulin Ratio 1.5 (1.0-2.8); Alkaline Phosphatase 58 U/L (38-126); Aspartate Aminotransferase 32 IU/L (14-36); Bilirubin Total 0.9 mg/dL (0.2-1.3); Blood Urea Nitrogen 16 mg/dL (7-17); Carbon Dioxide 27 mmol/L (22-32); Chloride 102 mmol/L (98-107); Estimated Glomerular Filt Rate > 60 mL/min (>60); Glucose 104 mg/dL (70-100); HEMOLYSIS < 15 (0-50); Sodium 137 mmol/L (137-145); Total Protein 7.6 g/dL (6.3-8.2)
[2023-04-08 12:18] LABS: NT-proBNP (BNP-Adult 18+) 22 pg/mL (<125); Troponin I < 0.012 ng/mL (0.01-0.034)
[2023-04-08 12:45] LABS: Adenovirus Not Detected (Not Detect); B. parapertussis Not Detected (Not Detecte); Bordetella pertussis Not Detected (Not Detecte); Chlamydophila pneumoniae Not Detected (Not Detect); Coronavirus 229E Not Detected (Not Detect); Coronavirus HKU1 Not Detected (Not Detect); Coronavirus NL 63 Not Detected (Not Detect); Coronavirus OC43 Not Detected (Not Detect); Human Metapneumovirus Not Detected (Not Detect); Human Rhinovirus/Enterovirus Detected (Not Detect); Influenza A Not Detected (Not Detect); Influenza B Not Detected (Not Detect); Mycoplasma pneumoniae Not Detected (Not Detect); Parainfluenza Virus 1 Not Detected (Not Detect); Parainfluenza Virus 2 Not Detected (Not Detect); Parainfluenza Virus 3 Not Detected (Not Detect); Parainfluenza Virus 4 Not Detected (Not Detect); Respiratory Syncytial Virus Not Detected (Not Detect); SARS- CoV-2 Not Detected (Not Detecte)
[2023-04-08] MEDS: methylPREDNISolone 125 MG/2 ML VIAL IV (13:41)
--- NOTE | 2023-04-08 13:59 | ED_ITS ---
HPI - SOB/Dyspnea <Taras Christine PA-C - Last Filed: 04/08/23 19:05> General Chief Complaint: Shortness of Breath/Dyspnea Stated Complaint: here T-4 breathing not getting better/Chest hurts Time Seen by Provider: 04/08/23 13:57 Source: patient Mode of arrival: Ambulatory Limitations: no limitations History of Present Illness HPI Narrative: This is a 33-year-old female presents emergency department due to continued shortness of breath for the last 4 days. Patient was seen here 3 days ago due to shortness of breath and wheezing. No history of underlying lung disease. Patient was given albuterol treatment and nebulizer. Discharged with a prescription for albuterol as well as a spacer. Also discharged with steroids. Patient is returning to emergency department saying that she is continuing to have shortness of breath although not worsening. She states she ran out of her albuterol inhaler but has been taking the prednisone as prescribed. She reports continued dry cough. No other systemic symptoms. Related Data Previous Rx's Medication Instructions Recorded prednisone 20 mg tablet 20 mg PO DAILY 7 days #7 tabs 04/05/23 albuterol sulfate 90 mcg/actuation 2 puff inhalation Q6H PRN 04/08/23 aerosol inhaler shortness of breath or wheezing #8.5 grams benzonatate 100 mg capsule 100 mg PO BID PRN cough #30 caps 04/08/23 Allergies Allergy/AdvReac Type Severity Reaction Status Date / Time No Known Drug Allergies Allergy Verified 04/08/23 11:37 Review of Systems <Taras Christine PA-C - Last Filed: 04/08/23 19:05> Review of Systems Narrative: GENERAL: Denies chills, fatigue, malaise, fever, sweats. HEENT: Denies sinus pain, ear pain, sore throat, difficulty swallowing, dizziness. RESPIRATORY: Reports shortness of breath, , cough, denies wheezing, hemoptysis, sputum. CARDIOVASCULAR: Denies chest pain, palpitations, orthopnea, edema, GASTROINTESTINAL: Denies nausea, vomiting, abdominal pain, diarrhea, constipation, melena. : Denies dysuria, frequency, incontinence, hematuria, urinary retention. MUSCULOSKELETAL: denies weakness, joint pain, or bony pain SKIN: Denies rash, skin lesions, or other NEUROLOGIC: Denies weakness, headache, numbness, change in speech, confusion, seizures, incoordination. PSYCHIATRIC: No concerning psychosocial issues. 12 point review of systems is negative except for those stated above Patient History <Taras Christine PA-C - Last Filed: 04/08/23 19:05> Medical History (Updated 04/08/23 @ 14:16 by Taras Christine PA-C) Healthy adult Social History marital status: lives independently: Yes Smoking Status: Never smoker Smoking Status: Never smoker alcohol intake frequency: holidays/special occasions only Substance Use Type: marijuana Exam <Taras Christine PA-C - Last Filed: 04/08/23 19:05> Narrative Exam Narrative: GENERAL: Well-developed patient, in mild distress. HEAD: Atraumatic. Normocephalic. EYES: Pupils equal round and reactive. Extraocular motions intact. No scleral icterus. No injection or drainage. ENT: Nose without bleeding, purulent drainage. Throat without erythema, tonsillar hypertrophy or exudate. Airway patent. NECK: Trachea midline. Non tender CARDIOVASCULAR: Regular rate and rhythm without murmurs, gallops, or rubs. RESPIRATORY: Clear to auscultation. Breath sounds equal bilaterally. No wheezes, rales, or rhonchi. GASTROINTESTINAL: Abdomen soft, non-tender, nondistended. EXTREMITIES: No edema or joint tenderness. BACK: Nontender without deformity or crepitance. No flank tenderness. NEURO: AOx3. SKIN: No rash or erythema of visible areas Initial Vital Signs Initial Vital Signs: Vital Signs Temperature 99.7 F H 04/08/23 11:32 Pulse Rate 103 H 04/08/23 11:32 Respiratory Rate 18 04/08/23 11:32 Pulse Oximetry 99 04/08/23 11:32 Oxygen Delivery Method Room Air 04/08/23 11:32 <Iram Piña DO - Last Filed: 04/09/23 19:51> Initial Vital Signs Initial Vital Signs: Vital Signs Temperature 99.7 F H 04/08/23 11:32 Pulse Rate 103 H 04/08/23 11:32 Respiratory Rate 18 04/08/23 11:32 Pulse Oximetry 99 04/08/23 11:32 Oxygen Delivery Method Room Air 04/08/23 11:32 Course <Taras Christine PA-C - Last Filed: 04/08/23 19:05> Orders Ordered: Discontinued Medications Albuterol (Albuterol 2.5 Mg/3 Ml Neb (Adult)) 2.5 mg INH [id number] PRN PRN Reason: Shortness Of Breath Last Admin: 04/08/23 14:41 Dose: 2.5 mg Documented By: SAT Methylprednisolone (Methylprednisolone 125 Mg/2 Ml Vial) 125 mg IV NOW ONE Stop: 04/08/23 13:22 Last Admin: 04/08/23 13:41 Dose: 125 mg Documented By: DKSarkis Vital Signs Vital signs: Vital Signs - 8 hr 04/08/23 11:32 04/08/23 12:44 04/08/23 12:44 Temperature 99.7 F H Pulse Rate 103 H 90 Respiratory Rate 18 Blood Pressure 146/84 H Pulse Oximetry 99 96 Oxygen Delivery Method Room Air 04/08/23 13:00 04/08/23 13:00 04/08/23 14:37 Temperature Pulse Rate 76 79 Respiratory Rate 18 Blood Pressure 138/81 Pulse Oximetry 99 95 Oxygen Delivery Method Room Air 04/08/23 13:30 04/08/23 13:30 04/08/23 14:00 Temperature Pulse Rate 87 Respiratory Rate Blood Pressure 147/97 H 145/71 H Pulse Oximetry 98 Oxygen Delivery Method 04/08/23 14:00 04/08/23 14:30 04/08/23 14:31 Temperature Pulse Rate 80 81 85 Respiratory Rate Blood Pressure Pulse Oximetry 97 94 91 Oxygen Delivery Method 04/08/23 14:31 Temperature Pulse Rate Respiratory Rate Blood Pressure 153/80 H Pulse Oximetry Oxygen Delivery Method <Iram Piña, - Last Filed: 04/09/23 19:51> Orders Ordered: Discontinued Medications Albuterol (Albuterol 2.5 Mg/3 Ml Neb (Adult)) 2.5 mg INH [id number] PRN PRN Reason: Shortness Of Breath Last Admin: 04/08/23 14:41 Dose: 2.5 mg Documented By: SAT Methylprednisolone (Methylprednisolone 125 Mg/2 Ml Vial) 125 mg IV NOW ONE Stop: 04/08/23 13:22 Last Admin: 04/08/23 13:41 Dose: 125 mg Documented By: DKB Vital Signs Vital signs: Vital Signs - 8 hr 04/08/23 11:32 04/08/23 12:44 04/08/23 12:44 Temperature 99.7 F H Pulse Rate 103 H 90 Respiratory Rate 18 Blood Pressure 146/84 H Pulse Oximetry 99 96 Oxygen Delivery Method Room Air 04/08/23 13:00 04/08/23 13:00 04/08/23 14:37 Temperature Pulse Rate 76 79 Respiratory Rate 18 Blood Pressure 138/81 Pulse Oximetry 99 95 Oxygen Delivery Method Room Air 04/08/23 13:30 04/08/23 13:30 04/08/23 14:00 Temperature Pulse Rate 87 Respiratory Rate Blood Pressure 147/97 H 145/71 H Pulse Oximetry 98 Oxygen Delivery Method 04/08/23 14:00 04/08/23 14:30 04/08/23 14:31 Temperature Pulse Rate 80 81 85 Respiratory Rate Blood Pressure Pulse Oximetry 97 94 91 Oxygen Delivery Method 04/08/23 14:31 Temperature Pulse Rate Respiratory Rate Blood Pressure 153/80 H Pulse Oximetry Oxygen Delivery Method MDM - SOB/Dyspnea <Taras Christine PA-C - Last Filed: 04/08/23 19:05> Lab Data 04/08/23 11:44 04/08/23 11:44 Labs: Lab Results 04/08/23 04/08/23 04/08/23 Range/Units 11:44 11:44 11:44 WBC 7.2 (4.5-11.0) X10^3/uL RBC 5.04 (4.0-5.2) X10^6/uL Hgb 14.7 (12.0-16.0) g/dL Hct 43.6 (36-46) % MCV 86.5 (80-100) fL MCH 29.2 (26-34) PG MCHC 33.8 (30-36) % RDW 13.5 (11.6-14.8) % Plt Count 262 (150-400) X10^3/uL Neut % (Auto) 48.1 L (50-75) % Lymph % (Auto) 40.7 H (25-40) % Wilcox % (Auto) 7.9 (3-14) % Eos % (Auto) 2.3 (2-4) % Baso % (Auto) 1.0 (0-2) % Neut # (Auto) 3500 (1100-0443) /uL Lymph # (Auto) 2900 (0872-7940) /uL Wilcox # (Auto) 600 (0-900) /uL Eos # (Auto) 200 (0-450) /uL Baso # (Auto) 100 (0-100) /uL PT 11.2 (10.1-12.7) SECONDS INR 1.0 (0.9-1.3) Sodium 137 (137-145) mmol/L Potassium 4.0 (3.4-5.1) mmol/L Chloride 102 (98-107) mmol/L Carbon Dioxide 27 (22-32) mmol/L BUN 16 (7-17) mg/dL Creatinine 0.84 (0.52-1.04) mg/dL Estimated GFR > 60 (>60) mL/min BUN/Creatinine Ratio 19.0 (6-22) Glucose 104 H (70-100) mg/dL Lactate (0.7-2.1) mmol/L Calcium 9.0 (8.4-10.2) mg/dL Total Bilirubin 0.9 (0.2-1.3) mg/dL AST 32 (14-36) IU/L ALT 22 (<35) IU/L Alkaline Phosphatase 58 (38-126) U/L Troponin I < 0.012 (0.01-0.034) ng/mL NT-Pro-B Natriuret Pep 22 (<125) pg/mL Total Protein 7.6 (6.3-8.2) g/dL Albumin 4.6 (3.5-5.0) g/dL Globulin 3.0 (1.7-4.1) g/dL Albumin/Globulin Ratio 1.5 (1.0-2.8) Chlamy pneumoniae PCR (Not Detect) Adenovirus (PCR) (Not Detect) B. pertussis DNA (PCR) (Not Detecte) B.parapertussis DNA PCR (Not Detecte) Coronavirus OC43 (PCR) (Not Detect) Coronavirus HKU1 (PCR) (Not Detect) Coronavirus 229E (PCR) (Not Detect) SARS-CoV-2 (PCR) (Not Detecte) Coronavirus NL63 (PCR) (Not Detect) Human Metapneumovir PCR (Not Detect) Influenza Type A (PCR) (Not Detect) Influenza Type B (PCR) (Not Detect) M. pneumoniae (PCR) (Not Detect) Parainfluenza 1 (PCR) (Not Detect) Parainfluenza 2 (PCR) (Not Detect) Parainfluenza 3 (PCR) (Not Detect) Parainfluenza 4 (PCR) (Not Detect) RSV (PCR) (Not Detect) Entero/Rhino (PCR) (Not Detect) 04/08/23 04/08/23 Range/Units 11:44 11:44 WBC (4.5-11.0) X10^3/uL RBC (4.0-5.2) X10^6/uL Hgb (12.0-16.0) g/dL Hct (36-46) % MCV (80-100) fL MCH (26-34) PG MCHC (30-36) % RDW (11.6-14.8) % Plt Count (150-400) X10^3/uL Neut % (Auto) (50-75) % Lymph % (Auto) (25-40) % Wilcox % (Auto) (3-14) % Eos % (Auto) (2-4) % Baso % (Auto) (0-2) % Neut # (Auto) (0320-1631) /uL Lymph # (Auto) (1401-7660) /uL Wilcox # (Auto) (0-900) /uL Eos # (Auto) (0-450) /uL Baso # (Auto) (0-100) /uL PT (10.1-12.7) SECONDS INR (0.9-1.3) Sodium (137-145) mmol/L Potassium (3.4-5.1) mmol/L Chloride (98-107) mmol/L Carbon Dioxide (22-32) mmol/L BUN (7-17) mg/dL Creatinine (0.52-1.04) mg/dL Estimated GFR (>60) mL/min BUN/Creatinine Ratio (6-22) Glucose (70-100) mg/dL Lactate 1.0 (0.7-2.1) mmol/L Calcium (8.4-10.2) mg/dL Total Bilirubin (0.2-1.3) mg/dL AST (14-36) IU/L ALT (<35) IU/L Alkaline Phosphatase (38-126) U/L Troponin I (0.01-0.034) ng/mL NT-Pro-B Natriuret Pep (<125) pg/mL Total Protein (6.3-8.2) g/dL Albumin (3.5-5.0) g/dL Globulin (1.7-4.1) g/dL Albumin/Globulin Ratio (1.0-2.8) Chlamy pneumoniae PCR Not detected (Not Detect) Adenovirus (PCR) Not detected (Not Detect) B. pertussis DNA (PCR) Not detected (Not Detecte) B.parapertussis DNA PCR Not detected (Not Detecte) Coronavirus OC43 (PCR) Not detected (Not Detect) Coronavirus HKU1 (PCR) Not detected (Not Detect) Coronavirus 229E (PCR) Not detected (Not Detect) SARS-CoV-2 (PCR) Not detected (Not Detecte) Coronavirus NL63 (PCR) Not detected (Not Detect) Human Metapneumovir PCR Not detected (Not Detect) Influenza Type A (PCR) Not detected (Not Detect) Influenza Type B (PCR) Not detected (Not Detect) M. pneumoniae (PCR) Not detected (Not Detect) Parainfluenza 1 (PCR) Not detected (Not Detect) Parainfluenza 2 (PCR) Not detected (Not Detect) Parainfluenza 3 (PCR) Not detected (Not Detect) Parainfluenza 4 (PCR) Not detected (Not Detect) RSV (PCR) Not detected (Not Detect) Entero/Rhino (PCR) Detected H (Not Detect) Imaging Data Chest x-ray: Radiologist's Impression: [address] [address] XRay Report Signed Patient: Kathy Hinton MR#: [id number] : 1990 Acct:[id number] Age/Sex: 33 / F Date of Service: 04/08/23 Loc: ED Accession Number: [id number] ?? Procedure: XR chest 1V Ordering Provider: Iram Piña D.O. PROCEDURE:? XR CHEST 1V ? INDICATIONS:? Shortness of breath ? TECHNIQUE:? One view of the chest was acquired.? ? COMPARISON:? None. ? FINDINGS:? ? Surgical changes and devices:? None.? ? Lungs and pleura:? Lungs are clear.? No pleural effusions or pneumothorax.? ? Mediastinum:? Mediastinal contours appear normal.? Heart size is normal.? ? Bones and chest wall:? No suspicious bony lesions.? Overlying soft tissues appear unremarkable.? ? IMPRESSION:? No evidence acute pulmonary process. ? ? ? Dictated by: Pascual Orta M.D. on 04/08/2023 at 12:49 ? ? Approved by: Pasucal Orta M.D. on 04/08/2023 at 12:49 ? MDM Narrative Medical decision making narrative: MDM * differential diagnosis includes but not limited to pneumonia, acute bronchitis, asthma exacerbation, COPD, viral illness * Prior records reviewed: See above in HPI * My lab interpretation: Lab work unremarkable. Troponin within normal limits. BNP unremarkable. No leukocytosis * My imgaing interpretation: Chest x-ray negative for any acute findings * Clinical Decision Rules/Scores evaluated: None * Independent discussions with: None ED Course: This is a 33-year-old female presents emergency department due to continued shortness of breath and a dry cough suspected due to be likely the rhino virus that she tested positive for today. She was seen 3 days ago for similar symptoms but states that she ran out of her albuterol inhaler which was the only thing that was effective for her. She was also discharged with prednisone. Recommended she continue to take the prednisone throughout its course. Patient will be given a new prescription for albuterol inhaler. Patient had a chest x-ray today which was unremarkable. Troponin within normal limits. All other lab work within normal limits. BNP unremarkable as well.. Suspect the slightly worsening shortness of breath due to the viral illness. No wheezing on exam. Shared Decision Making: Discussed plan with patient who is comfortable with the plan Social Considerations: None Disposition: Discharge to home <Iram Piña, DO - Last Filed: 04/09/23 19:51> Lab Data Labs: Lab Results 04/08/23 04/08/23 04/08/23 Range/Units 11:44 11:44 11:44 WBC 7.2 (4.5-11.0) X10^3/uL RBC 5.04 (4.0-5.2) X10^6/uL Hgb 14.7 (12.0-16.0) g/dL Hct 43.6 (36-46) % MCV 86.5 (80-100) fL MCH 29.2 (26-34) PG MCHC 33.8 (30-36) % RDW 13.5 (11.6-14.8) % Plt Count 262 (150-400) X10^3/uL Neut % (Auto) 48.1 L (50-75) % Lymph % (Auto) 40.7 H (25-40) % Wilcox % (Auto) 7.9 (3-14) % Eos % (Auto) 2.3 (2-4) % Baso % (Auto) 1.0 (0-2) % Neut # (Auto) 3500 (9421-7113) /uL Lymph # (Auto) 2900 (6885-4309) /uL Wilcox # (Auto) 600 (0-900) /uL Eos # (Auto) 200 (0-450) /uL Baso # (Auto) 100 (0-100) /uL PT 11.2 (10.1-12.7) SECONDS INR 1.0 (0.9-1.3) Sodium 137 (137-145) mmol/L Potassium 4.0 (3.4-5.1) mmol/L Chloride 102 (98-107) mmol/L Carbon Dioxide 27 (22-32) mmol/L BUN 16 (7-17) mg/dL Creatinine 0.84 (0.52-1.04) mg/dL Estimated GFR > 60 (>60) mL/min BUN/Creatinine Ratio 19.0 (6-22) Glucose 104 H (70-100) mg/dL Lactate (0.7-2.1) mmol/L Calcium 9.0 (8.4-10.2) mg/dL Total Bilirubin 0.9 (0.2-1.3) mg/dL AST 32 (14-36) IU/L ALT 22 (<35) IU/L Alkaline Phosphatase 58 (38-126) U/L Troponin I < 0.012 (0.01-0.034) ng/mL NT-Pro-B Natriuret Pep 22 (<125) pg/mL Total Protein 7.6 (6.3-8.2) g/dL Albumin 4.6 (3.5-5.0) g/dL Globulin 3.0 (1.7-4.1) g/dL Albumin/Globulin Ratio 1.5 (1.0-2.8) Chlamy pneumoniae PCR (Not Detect) Adenovirus (PCR) (Not Detect) B. pertussis DNA (PCR) (Not Detecte) B.parapertussis DNA PCR (Not Detecte) Coronavirus OC43 (PCR) (Not Detect) Coronavirus HKU1 (PCR) (Not Detect) Coronavirus 229E (PCR) (Not Detect) SARS-CoV-2 (PCR) (Not Detecte) Coronavirus NL63 (PCR) (Not Detect) Human Metapneumovir PCR (Not Detect) Influenza Type A (PCR) (Not Detect) Influenza Type B (PCR) (Not Detect) M. pneumoniae (PCR) (Not Detect) Parainfluenza 1 (PCR) (Not Detect) Parainfluenza 2 (PCR) (Not Detect) Parainfluenza 3 (PCR) (Not Detect) Parainfluenza 4 (PCR) (Not Detect) RSV (PCR) (Not Detect) Entero/Rhino (PCR) (Not Detect) 04/08/23 04/08/23 Range/Units 11:44 11:44 WBC (4.5-11.0) X10^3/uL RBC (4.0-5.2) X10^6/uL Hgb (12.0-16.0) g/dL Hct (36-46) % MCV (80-100) fL MCH (26-34) PG MCHC (30-36) % RDW (11.6-14.8) % Plt Count (150-400) X10^3/uL Neut % (Auto) (50-75) % Lymph % (Auto) (25-40) % Wilcox % (Auto) (3-14) % Eos % (Auto) (2-4) % Baso % (Auto) (0-2) % Neut # (Auto) (2382-2536) /uL Lymph # (Auto) (8999-6587) /uL Wilcox # (Auto) (0-900) /uL Eos # (Auto) (0-450) /uL Baso # (Auto) (0-100) /uL PT (10.1-12.7) SECONDS INR (0.9-1.3) Sodium (137-145) mmol/L Potassium (3.4-5.1) mmol/L Chloride (98-107) mmol/L Carbon Dioxide (22-32) mmol/L BUN (7-17) mg/dL Creatinine (0.52-1.04) mg/dL Estimated GFR (>60) mL/min BUN/Creatinine Ratio (6-22) Glucose (70-100) mg/dL Lactate 1.0 (0.7-2.1) mmol/L Calcium (8.4-10.2) mg/dL Total Bilirubin (0.2-1.3) mg/dL AST (14-36) IU/L ALT (<35) IU/L Alkaline Phosphatase (38-126) U/L Troponin I (0.01-0.034) ng/mL NT-Pro-B Natriuret Pep (<125) pg/mL Total Protein (6.3-8.2) g/dL Albumin (3.5-5.0) g/dL Globulin (1.7-4.1) g/dL Albumin/Globulin Ratio (1.0-2.8) Chlamy pneumoniae PCR Not detected (Not Detect) Adenovirus (PCR) Not detected (Not Detect) B. pertussis DNA (PCR) Not detected (Not Detecte) B.parapertussis DNA PCR Not detected (Not Detecte) Coronavirus OC43 (PCR) Not detected (Not Detect) Coronavirus HKU1 (PCR) Not detected (Not Detect) Coronavirus 229E (PCR) Not detected (Not Detect) SARS-CoV-2 (PCR) Not detected (Not Detecte) Coronavirus NL63 (PCR) Not detected (Not Detect) Human Metapneumovir PCR Not detected (Not Detect) Influenza Type A (PCR) Not detected (Not Detect) Influenza Type B (PCR) Not detected (Not Detect) M. pneumoniae (PCR) Not detected (Not Detect) Parainfluenza 1 (PCR) Not detected (Not Detect) Parainfluenza 2 (PCR) Not detected (Not Detect) Parainfluenza 3 (PCR) Not detected (Not Detect) Parainfluenza 4 (PCR) Not detected (Not Detect) RSV (PCR) Not detected (Not Detect) Entero/Rhino (PCR) Detected H (Not Detect) Discharge Plan Departure Patient Disposition: Home Clinical Impression: Rhinovirus, Breath shortness Activity Restrictions/Additional Instructions: Thank you for coming to [facility] Emergency Department today. Your chest x-ray today was unremarkable here no evidence of pneumonia or any other lung abnormality. Your viral panel did come back positive for rhino virus which is similar to the ?common cold? you should improve over the next week or so. As the virus clears I suspect your shortness of breath and cough will improve as w ell. I have represcribed you in an albuterol inhaler as well as some cough medicine. I recommend you continue the course of prednisone that was previously prescribed to you. Your other lab work was unremarkable as well. We also did test to check your heart which was within normal limits. I sent your medications to [facility]. I hope you feel better soon. Prescriptions: New albuterol sulfate 90 mcg/actuation HFA aerosol inhaler 2 puff inhalation Q6H PRN (Reason: shortness of breath or wheezing) Qty: 8.5 1RF benzonatate 100 mg capsule 100 mg PO BID PRN (Reason: cough) Qty: 30 0RF No Action prednisone 20 mg tablet 20 mg PO DAILY 7 Days Qty: 7 0RF Referrals: Miscellaneous,Doctor, [Primary Care Provider] - Stand Alone Forms: Patient Portal/API <Iram Piña DO - Last Filed: 04/09/23 19:51> Cosign ED Attending Cosignature Attestation: I was immediately available in the department for consultation. Documentation has been reviewed.
[2023-04-08] MEDS: ALBUTEROL 2.5 MG/3 ML NEB (ADULT) INH (14:41)
== END 2023-04-08 14:46 | disposition home or self-care (01) ==
PROVIDERS: Emergency Medicine; Emergency Provider Physician Assistant Medical
DX: B34.8 Other viral infections of unspecified site (principal); R06.02 Shortness of breath; R07.9 Chest pain, unspecified; Z20.822 Contact with and (suspected) exposure to COVID-19
CPT/HCPCS: 36415; 71045; 80053; 83605; 83880; 84484; 85025; 85610; 87633; 93005; 94640; 96374; 99284; J2930; J7613